=== PATIENT | female | born 2000 | race African-American/Black ===

== ENCOUNTER 2024-03-02 09:05 | Emergency (ER) | payer OTHER, SELFPAY ==
[2024-03-02 09:09] VITALS: BP 121/77
[2024-03-02 09:27] VITALS: BMI 26.6
--- NOTE | 2024-03-02 09:31 | ED.GENMED ---
History of Present Illness
General
Chief Complaint: Urinary Symptoms
Source: patient
Time Seen by Provider: 03/02/24 09:16
Travel History
Have you had any contact with someone who has COVID-19?: No
Do you have any symptoms of coronavirus? Fever > 100 degrees, chills, cough, shortness of breath, sore throat, loss of taste or smell, muscle aches, or headache?: No
History of Present Illness
History of Present Illness:
23-year-old very pleasant recent college graduate who presents emergency department complaints of urgency and frequency after urinating since mid January. She went to [place] at that time and a UA was negative for infection. She continues to
experience the symptoms. However, today, she developed a 'sharp' discomfort in the suprapubic and right back area. This is on and off, lasting just a few seconds at a time and then resolving completely. She denies burning with urination,
hematuria, fever, chills, nausea, vomiting, chest pain, shortness of breath, or other complaints. Her last menstrual cycle began within the last 4 weeks. Patient denies other complaints.
Past History
Past History
ED Past Medical History: None
ED Past Surgical History: None
Social History
Tobacco: Former smoker
Alcohol: Occasional
Drug: None
Personal: Single
Living: with family
Employment: Employed
Phy Exam
Physical Exam
Physical Exam:
GENERAL: Alert , in no apparent distress
EYE: pupils equal and reactive
NECK: Supple, no significant adenopathy.
ENT: o/p clr, mmm.
CARDIAC: Regular rate and rhythm .
LUNGS: Clear breath sounds bilaterally, no acute respiratory distress, no wheezes/rales/rhonchi
ABDOMEN: Soft, without focal tenderness, no r/g, no cvat
NEUROLOGICAL: Alert and oriented, no focal neuro deficits
SKIN: Warm and dry, skin intact.
MUSCULOSKELETAL: No edema, well perfused.
PSYCH: Normal and appropriate interaction.
Course
Orders/Labs/Results
Orders:
Orders
03/02/24 09:16
Test Result ONCE
03/02/24 09:24
HCG, Urine Qualitative Screen Urgent
Date Specimen was Collected: 03/02/24
Time Specimen was Collected: 09:20
Urinalysis Reflex To Culture Urgent
Date Specimen was Collected: 03/02/24
Time Specimen was Collected: 09:20
Urine Microscopic Reflex Cult Urgent
03/02/24 09:31
US Kidneys and US Bladder [US Renal With Bladder] Urgent
Comment:
Reason For Exam: r flank pain
Abnormal Lab Results
03/02/24
09:24
Urine Ketones Trace A
(Negative)
Ur Occult Blood Reflex 2+ A
(Negative)
Urine RBC 7-10 A /HPF
(0-2)
Vital Signs
Initial and Last Documented VS:
Initial Vital Signs
Temp Pulse Resp BP Pulse Ox
98.0 F 77 16 121/77 98
03/02/24 09:09 03/02/24 09:09 03/02/24 09:09 03/02/24 09:09 03/02/24 09:09
Last Documented Vital Signs
Temp Pulse Resp BP Pulse Ox
98.0 F 77 16 121/77 98
03/02/24 09:09 03/02/24 09:09 03/02/24 09:09 03/02/24 09:09 03/02/24 09:09
Update Note
Update Note:
Patient presents to the Emergency Department with ___suprapubic flank pain urgency and frequency
Number and Complexity of Problems Addressed at the Encounter
� Chronic conditions affecting care:
� Acute Exacerbation and/or Progression of Chronic Illness:
� Differential Diagnosis includes: But not limited to UTI, pyelonephritis, kidney stone, interstitial cystitis, etc.
Amount and/or Complexity of Data to be Reviewed and Analyzed
� I performed an independent evaluation of and my interpretation is:
EKG:
CT:
Xrays:
Laboratory Studies: Patient declines
Other: UA consistent with microscopic hematuria, do not suspect infection based on UA findings
us No sonographic evidence for hydronephrosis or nephrolithiasis in the right kidney.
2. Mild asymmetric distention of the left intrarenal calyces and a 5.8 cm cystic structure in the left renal hilum (either a distended left renal pelvis or parapelvic cyst) raising the possibility of a left ureteropelvic junction obstruction.
3. Moderate postvoid residual in the urinary bladder (30 mL).
� Review of other/old records reveals:
� Clinical information was obtained by an independent historian:
� Prescriptions/Medications Considered but not given:
� Further testing considered but not performed:
Risk of Complications and/or Morbidity or Mortality of Patient Management
� Social determinants of health affecting care:
� Discussion with other providers (PCP, Hospitalists, Consultants, etc):
� Escalation of care including admission/observation vs risk of discharge considered: Patient declines medication for pain here, comfortable, stable. Several findings noted including microscopic hematuria, questionable left
renal hilum finding, and mild postvoid residual. Did recommend to patient checking labs and a CT here, but upon further discussion they prefer to defer at this time and sees her doctor and close follow-up. I recommend that they see our urologist
Dr. Castro, and Serjio text sent to her requesting a prompt follow-up. Prescribe a short course of Pyridium, risks and benefits discussed with her.
ED Attending Note
-
Portions of this chart may have been created with voice recognition software.� Occasional wrong word or��sound alike� substitutions may have occurred due to the inherent limitations of voice recognition software.
Discharge Plan
Departure
Patient Disposition: Home (Routine Discharge)
Date of Disposition: 03/02/24
Time of Disposition: 12:54
Patient with high blood pressure during this ER visit?: Yes
Condition: Good
Discharge Problem:
Dysuria
Instructions: Blood in the Urine (Hematuria), Adult (DC), BLOOD PRESSURE
Prescriptions:
New
phenazopyridine [Pyridium] 200 mg tablet
200 mg PO TID PRN (Reason: Pain) Qty: 7 0RF
Referrals:
Romy Castro, DO [Active] - Next open appointment
Activity Restrictions/Additional Instructions:
YOU HAVE ABNORMALITIES (SEE ULTRASOUND REPORT) THAT REQUIRE CLOSE FOLLOW UP. PLEASE SEE THE UROLOGY DOCTOR PROMPTLY. IF YOU DEVELOP FEVER, VOMITING, INCREASING/NEW PAIN, BLEEDING, DIZZINESS, OR OTHER WORRISOME SIGNS, GO TO THE ER IMMEDIATELY!
Interventions
Interventions:
*Risk Screen - Suicide Last Done: 03/02/24 09:26
*General Assessment Last Done: 03/02/24 09:26
*Neglect/Abuse Screening Last Done: 03/02/24 09:26
*ED COVID-19 Vaccine History Last Done: 03/02/24 09:09
ED-Female Genitourinary Assessment Last Done: 03/02/24 09:30
Discharge Date and Time
Print Language: OCCITAN
[2024-03-02 10:05] LABS: Urine Albumin Negative (Neg - Trace); Urine Bilirubin Negative (Negative); Urine Character Clear (Clear); Urine Color Yellow; Urine Glucose Negative (Negative); Urine Ketone Trace (Negative); Urine Leukocyte Negative (Negative); Urine Nitrite Negative (Negative); Urine Occult Blood 2+ (Negative); Urine Urobilinogen Negative (Neg - 1+)
[2024-03-02 10:09] LABS: HCG, Urine Qualitative Screen Negative
[2024-03-02 13:02] VITALS: BP 118/71
== END 2024-03-02 13:15 | disposition home or self-care (01) ==
LOC: EMR 09:05
PROVIDERS: EMERGENCY PHYSICIAN Emergency Medicine; FAMILY PHYSICIAN Internal Medicine
DX: R30.0 Dysuria (principal); Z87.891 Personal history of nicotine dependence
CPT/HCPCS: 99284; 76770; 81003; 81015; 81025